=== PATIENT | male | born 1935 | race Caucasian/White ===

== ENCOUNTER 2018-12-11 13:27 | Outpatient (CLI) | payer MEDICARE, OTHER ==
[~2018-12-11 13:27] MED LIST: AMOXICILLIN500 MG ORAL; AVODART0.5 MG ORAL; BENAZEPRIL-HCT1 EACH ORAL; CARVEDILOL6.25 MG ORAL; CORTISPORIN EAR10 ML LEFT EAR; CRESTOR10 M1 ORAL; PLAVIX75 MG ORAL; SPIRONOLACTONE25 MG PO; TAMSULOSIN HCL0.4 MG ORAL; VASCEPA1 GM PO
--- NOTE | 2018-12-11 13:59 | Diagnostic Imaging Report ---
Indication: Cough Technique: 2 views of the chest Comparison: 02/09/2013 Findings: There is some atelectasis at the left lung base. The lungs and pleural spaces are otherwise clear. The heart size is normal. The aorta is tortuous and calcified. There is mild thoracic scoliotic deformity Impression: Left basilar atelectasis. No acute process otherwise
== END 2018-12-11 15:27 | disposition home or self-care (01) ==
LOC: RAD 13:27
DX: D68.59 Other primary thrombophilia (principal); R42 Dizziness and giddiness; L21.9 Seborrheic dermatitis, unspecified; I10 Essential (primary) hypertension; R07.81 Pleurodynia; L57.0 Actinic keratosis; R05 Cough; J98.11 Atelectasis
CPT/HCPCS: 71046

== ENCOUNTER 2019-08-11 11:09 | Outpatient (CLI) | payer MEDICARE, OTHER ==
--- NOTE | 2019-08-11 17:34 | Diagnostic Imaging Report ---
Indication: Cough Technique: 2 views of the chest Comparison: 12/11/2018 Findings: Infiltrate is seen in the left mid and lower lung. There is probably a small amount of pleural fluid on the left as well. There is equivocal mild generalized interstitial prominence which is not evident previously. The heart is borderline enlarged. There are degenerative changes of the thoracic spine Impression: Left lung infiltrate, likely pneumonia. Likely associated small pleural effusion Equivocal mild generalized interstitial prominence, nonspecific, could represent pulmonary edema.
== END 2019-08-11 13:09 | disposition home or self-care (01) ==
LOC: RAD 11:09
DX: R05 Cough (principal); J06.9 Acute upper respiratory infection, unspecified; D68.59 Other primary thrombophilia; R06.09 Other forms of dyspnea; J20.9 Acute bronchitis, unspecified; I49.9 Cardiac arrhythmia, unspecified; I48.91 Unspecified atrial fibrillation; I10 Essential (primary) hypertension; R42 Dizziness and giddiness
CPT/HCPCS: 71046